=== PATIENT | female | born 1985 | race Caucasian/White ===

== ENCOUNTER 2016-04-27 12:20 | Emergency (ER) | payer OTHER ==
[2016-04-27 12:35] VITALS: BMI 24.7
[2016-04-27] MEDS ORDERED: ONDANSETRON 4 MG/2 ML VIAL ONE ×2 (12:56→13:33)
[2016-04-27] MEDS ORDERED: ONDANSETRON 4 MG/2 ML VIAL IVPUSH ONE ×2 (13:23→13:32)
[2016-04-27] MEDS ORDERED: PANTOPRAZOLE SODIUM 40 MG in SODIUM CHLORIDE 100 ML IVPB ONE (13:23)
[2016-04-27] MEDS ORDERED: SODIUM CHLORIDE 1,000 ML IV STA ×2 (13:23→14:39)
[2016-04-27] MEDS ORDERED: PANTOPRAZOLE SODIUM 100 ML IVPB ONE (13:28)
[2016-04-27 13:31] LABS: BASOPHIL 0.4 % (0-2.0); MCH 27.5 pg (25.7-33.7); MCHC 33.9 g/dl (32.0-36.0); MEAN CELL VOLUME 81.1 fl (80-96); MEAN PLT VOLUME 10.6 fl (7.5-11.1); PLATELET COUNT 183 K/MM3 (134-434); RDW 13.5 % (11.6-15.6); WHITE BLOOD COUNT 14.5 K/mm3 (4.0-10.0)
[2016-04-27 13:55] LABS: ALBUMIN 4.4 g/dl (3.4-5.0); ALK PHOS 68 U/L (45-117); ANION GAP 15 (8-16); BILIRUBIN,TOTAL 0.7 mg/dL (0.2-1.0); CALCIUM 9.1 mg/dL (8.5-10.1); CO2 23 mmol/L (21-32); CREATININE 0.9 mg/dL (0.55-1.02); GLUCOSE,RANDOM 150 mg/dL (74-106); MAGNESIUM 1.5 mg/dL (1.8-2.4); SGOT/AST 14 U/L (15-37); SGPT/ALT 18 U/L (12-78); TOT PROT 8.3 g/dl (6.4-8.2)
[2016-04-27 14:27] LABS: URINE APPEARANCE CLEAR; URINE BILIRUBIN NEGATIVE (NEGATIVE); URINE BLOOD NEGATIVE (NEGATIVE); URINE COLOR STRAW; URINE GLUCOSE (UA) NEGATIVE (NEGATIVE); URINE KETONE 1+ (NEGATIVE); URINE LEUK ESTERASE NEGATIVE (NEGATIVE); URINE NITRITE NEGATIVE (NEGATIVE); URINE PROTEIN NEGATIVE (NEGATIVE); URINE UROBILINOGEN NEGATIVE E.U./dl (0.2-1.0)
[2016-04-27] MEDS ORDERED: MAGNESIUM SULF 50% (8.12 MEQ/2 ML-1 GM VIAL) IVPB ONE (14:39)
[2016-04-27] MEDS ORDERED: POTASSIUM CHLORIDE TABS 20 MEQ TABLET.ER (FP) PO ONE (14:40)
--- NOTE | 2016-04-27 14:44 | PDOC ---
History of Present Illness - General Chief Complaint: Pain, Acute Stated Complaint: VOMITING Time Seen by Provider: 04/27/16 13:02 History Source: Patient Exam Limitations: No Limitations - History of Present Illness Travel History: No Initial Comments: 04/27/16 13:41 31-year-old female with sudden onset of nausea followed by epigastric pain and vomiting. Patient states has vomited approximately 10+ time but denies diarrhea , fever, chest pain or shortness of breath. Patient does complain of chills presently unaccompanied with generalized fatigue. Patient denies recent travel, recent illness, medical history, or drug/alcohol use. Timing/Duration: reports: intermittent Quality: reports: moderate, cramping, sharpness Abdominal Pain Onset Location: reports: epigastric Pain Radiation: reports: no radiation Activities at Onset: reports: none Aggravating Factors: improves with: Movement Alleviating Factors: improves with: None Past History - Past Medical History Allergies/Adverse Reactions: Allergies Allergy/AdvReac Type Severity Reaction Status Date / Time No Known Allergies Allergy Verified 04/27/16 12:30 Home Medications: Ambulatory Orders NK [No Known Home Medication] 04/27/16 Other medical history: denies - Reproductive History LMP Normal: Yes Is Patient Now?: No - Psycho/Social/Smoking Cessation Hx Suicidal Ideation: No Smoking History: Never smoked Patient Lives Alone: Yes Lives with/in: lives alone Review of Systems - Review of Systems Able to Perform ROS?: Yes Constitutional: Yes: Chills HEENTM: No: Symptoms Reported Respiratory: No: Symptoms reported Cardiac (ROS): No: Symptoms Reported ABD/GI: Yes: Nausea, Vomiting, Abdominal cramping : No: Symptoms Reported Musculoskeletal: No: Symptoms Reported Integumentary: No: Symptoms Reported Neurological: No: Symptoms reported Endocrine: No: Symptoms Reported *Physical Exam - Vital Signs Last Vital Signs Temp Pulse Resp BP Pulse Ox 98.4 F 62 24 138/33 99 04/27/16 12:30 04/27/16 12:30 04/27/16 12:30 04/27/16 12:30 04/27/16 12:30 - Physical Exam General Appearance: Yes: Nourished, Appropriately Dressed. No: Apparent Distress HEENT: positive: EOMI, ADONIS, TMs Normal, Pharynx Normal. negative: Pale Conjunctivae Neck: positive: Normal Thyroid, Supple Respiratory/Chest: positive: Lungs Clear, Normal Breath Sounds. negative: Respiratory Distress, Accessory Muscle Use Cardiovascular: positive: Regular Rhythm, Regular Rate. negative: Murmur Gastrointestinal/Abdominal: positive: Normal Bowel Sounds, Soft, Tenderness ( epigastric, mild rt epigastric). negative: Distended, Guarding, Rebound Musculoskeletal: negative: CVA Tenderness Extremity: positive: Normal Capillary Refill Integumentary: positive: Normal Color, Warm, Moist Neurologic: positive: Motor Strength 5/5 (ambulatory) ED Treatment Course - LABORATORY CBC & Chemistry Diagram: 04/27/16 13:17 04/27/16 13:17 - ADDITIONAL ORDERS Additional order review: Laboratory Results 04/27/16 04/27/16 04/27/16 13:31 13:17 13:17 Sodium 143 Potassium 3.4 L Chloride 105 Carbon Dioxide 23 Anion Gap 15 BUN 11 Creatinine 0.9 Creat Clearance w eGFR > 60 Random Glucose 150 H Calcium 9.1 Magnesium Cancelled 1.5 L Total Bilirubin 0.7 AST 14 L ALT 18 Alkaline Phosphatase 68 Total Protein 8.3 H Albumin 4.4 Lipase 87 Serum , Qual Negative Urine Color Straw Urine Appearance Clear Urine pH 8.0 Ur Specific Coram 1.012 Urine Protein Negative Urine Glucose (UA) Negative Urine Ketones 1+ H Urine Blood Negative Urine Nitrite Negative Urine Bilirubin Negative Urine Urobilinogen Negative Ur Leukocyte Esterase Negative 04/27/16 13:17 RBC 5.04 MCV 81.1 MCHC 33.9 RDW 13.5 MPV 10.6 Neutrophils % 84.0 H Lymphocytes % 11.6 Monocytes % 4.0 Eosinophils % 0.0 Basophils % 0.4 - Medications Given in the ED: ED Medications Discontinued Medications Generic Name Dose Route Start Last Admin Trade Name Freq PRN Reason Stop Dose Admin Pantoprazole Sodium 40 mg/ 100 mls @ 200 mls/hr 04/27/16 13:23 04/27/16 13:37 Sodium Chloride IVPB 04/27/16 13:52 200 mls/hr ONCE ONE Administration Sodium Chloride 1,000 mls @ 1,000 mls/hr 04/27/16 13:23 04/27/16 13:24 Normal Saline - IV 04/27/16 14:22 1,000 mls/hr ASDIR STA Administration Ondansetron HCl 4 mg 04/27/16 13:23 04/27/16 13:24 Zofran Injection IVPUSH 04/27/16 13:24 4 mg ONCE ONE Administration Ondansetron HCl 4 mg 04/27/16 13:32 04/27/16 13:37 Zofran Injection IVPUSH 04/27/16 13:33 4 mg ONCE ONE Administration Medical Decision Making - Medical Decision Making 04/27/16 13:43 With nausea and epigastric pain since this morning. Patient on exam had epigastric tenderness without right upper quadrant or right lower quadrant tenderness. Patient has normal vital signs here in the ER. Patient ordered for labs including serum , UA, CBC, comp, magnesium, serum Protonix, Zofran, and IV fluids. 04/27/16 14:44 Laboratory Tests 04/27/16 04/27/16 04/27/16 13:17 13:17 13:17 WBC 14.5 H Hgb 13.9 Hct 40.9 Plt Count 183 Neutrophils % 84.0 H Sodium 143 Potassium 3.4 L Chloride 105 Carbon Dioxide 23 Anion Gap 15 BUN 11 Creatinine 0.9 Random Glucose 150 H Magnesium 1.5 L AST 14 L ALT 18 Total Protein 8.3 H Lipase 87 Serum , Qual Negative Urine Ketones 1+ H Urine Blood Negative Urine Nitrite Negative Ur Leukocyte Esterase Negative Patient ordered for kdur by mouth, magnesium IV, second bag of IV fluids, and another dose of Zofran. 04/27/16 17:01 Patient still complaining of nausea so was given a dose of Reglan which seemed to alleviate her discomfort. Patient given saltine crackers with apple juice diluted with water patient will be discharged home with Reglan and told to have bland food for the next 48 hours and advance as tolerated. *DC/Admit/Observation/Transfer Diagnosis at time of Disposition: Epigastric pain Nausea and vomiting Qualifiers: Vomiting type: unspecified Vomiting Intractability: intractable Qualified Code( s): R11.2 - Nausea with vomiting, unspecified - Discharge Dispostion Disposition: HOME Condition at time of disposition: Improved - Patient Instructions Printed Discharge Instructions: Nausea and Vomiting-Adult, DI for Epigastric Pain Additional Instructions: Please have bland soft food for the next 48 hours and advance as tolerated. May take Reglan as needed for nausea. If your symptoms worsen please return to ED. Otherwise may follow-up with your primary care physician.
[2016-04-27] MEDS ORDERED: POTASSIUM CHLORIDE TABS 10 MEQ TABLET.ER (FP) ONE (14:51)
[2016-04-27] MEDS ORDERED: MAGNESIUM SULF 50% (8.12 MEQ/2 ML-1 GM VIAL) ONE (14:51)
[2016-04-27] MEDS ORDERED: METOCLOPRAMIDE HCL INJECTION 10 MG/2 ML VIAL IVPB ONE (15:19)
[2016-04-27] MEDS ORDERED: METOCLOPRAMIDE HCL INJECTION 10 MG/2 ML VIAL ONE (15:20)
[2016-04-27 17:17] VITALS: BP 127/73; PULSE 72; TEMP 98.2
== END 2016-04-27 17:18 | disposition home or self-care (01) ==
LOC: JER 12:20
PROC: 3E033GC Introduction of Other Therapeutic Substance into Peripheral Vein, Percutaneous Approach (ICD-10-PCS; principal; 2016-04-27)
PROC: 3E033GC Introduction of Other Therapeutic Substance into Peripheral Vein, Percutaneous Approach (ICD-10-PCS; 2016-04-27)
PROC: 3E033GC Introduction of Other Therapeutic Substance into Peripheral Vein, Percutaneous Approach (ICD-10-PCS; 2016-04-27)
DX: R10.13 Epigastric pain (principal); R11.2 Nausea with vomiting, unspecified
CPT/HCPCS: 36415; 80053; 81003; 83690; 83735; 84703; 85025; 96365; 96375; 99284-25

== ENCOUNTER 2022-12-09 10:08 | Emergency (ER) | payer SELFPAY ==
[2022-12-09 10:33] VITALS: BP 109/73; PULSE 107; RESP 16; TEMP 99.8; BMI 24.7
[2022-12-09] MEDS ORDERED: ACETAMINOPHEN 500 MG TABLET (FP) PO ONE (11:39)
[2022-12-09] MEDS ORDERED: ACETAMINOPHEN 500 MG TABLET (FP) ONE (12:09)
[2022-12-09 12:36] LABS: HEMATOCRIT 36.7 % (32.4-45.2); HEMOGLOBIN 12.8 GM/dL (10.7-15.3); MCH 28.2 pg (25.7-33.7); MCHC 34.9 g/dl (32.0-36.0); MEAN CELL VOLUME 80.7 fl (80-96); MEAN PLT VOLUME 9.9 fl (7.5-11.1); PLATELET COUNT 125 10^3/uL (134-434); RBC 4.55 M/mm3 (3.60-5.2); RDW 13.8 % (11.6-15.6); WHITE BLOOD COUNT 2.9 K/mm3 (4.0-10.0)
[2022-12-09 12:53] LABS: POTASSIUM 3.8 mmol/L (3.5-5.1)
[2022-12-09 12:56] LABS: ALBUMIN 3.6 g/dl (3.4-5.0); BLOOD UREA NITROGEN 7.4 mg/dL (7-18); CALCIUM 7.9 mg/dL (8.5-10.1)
[2022-12-09 12:59] LABS: CREATININE 0.8 mg/dL (0.55-1.3)
[2022-12-09 13:01] LABS: BILIRUBIN,TOTAL 0.4 mg/dL (0.2-1); TOT PROT 7.1 g/dl (6.4-8.2)
[2022-12-09 13:20] LABS: EPI CELLS 9 /uL (0-25.1); HYALINE CASTS 0 /uL (0-3.1); URINE APPEARANCE CLEAR; URINE BACTERIA 201 /uL (0-1359); URINE BILIRUBIN NEGATIVE (NEGATIVE); URINE COLOR YELLOW; URINE GLUCOSE (UA) NEGATIVE (NEGATIVE); URINE KETONE TRACE (NEGATIVE); URINE LEUK ESTERASE NEGATIVE (NEGATIVE); URINE NITRITE NEGATIVE (NEGATIVE); URINE PROTEIN TRACE (NEGATIVE); URINE RBC 9 /uL (0-23.9); URINE UROBILINOGEN 0.2 mg/dL (0.2-1.0); URINE WBC 16 /uL (0-25.8)
[2022-12-09 13:51] LABS: ANISOCYTOSIS 2+
== END 2022-12-09 14:53 | disposition home or self-care (01) ==
LOC: JER 10:08
DX: R50.9 Fever, unspecified (principal); R51.9 Headache, unspecified; Z20.822 Contact with and (suspected) exposure to COVID-19
CPT/HCPCS: 0241U-QW; 36415; 80053; 81003; 84703; 85025; 87086; 99283-25